=== PATIENT | female | born 1965 | race Two or more races ===

== ENCOUNTER 2016-10-08 16:08 | Inpatient (IN) | payer OTHER ==
[~2016-10-08] VITALS: Ht 149.9 cm; Wt 54.2 kg
[~2016-10-08 16:08] MED LIST: CIPROFLOXACIN500 M1 PO; METRONIDAZOLE500 MG PO; PERCOCET 5/31 TABLET PO
[2016-10-08 17:04] LABS: EOSINOPHIL (%) 0.4 % (0-5); HEMATOCRIT 37.8 % (36.0-46.0); IMMATURE GRANULOCYTE (%) 1.3 % (0.0-0.7); IMMATURE GRANULOCYTE COUNT 0.1 K/uL; MCH 28.7 PG (29.0-34.0); MCHC 32.5 G/DL (30.0-36.0); MCV 88.3 FL (83-99); MONOCYTE (%) 7.5 % (3-12); MONOCYTE COUNT 0.6 K/uL (0-0.8); NEUTROPHIL (%) 51.3 % (45-76); NRBC (%) 5.3 /100 WBC (0-0); PLATELET COUNT 75 K/uL (156-360); RBC DIS.WIDTH-CV 19.4 % (11.8-14.6); RBC DIS.WIDTH-SD 53.8 % (39-53); RED BLOOD COUNT 4.28 M/uL (3.80-5.20); WHITE BLOOD COUNT 7.7 K/uL (4.1-10.2)
[2016-10-08 17:07] LABS: CHLORIDE 106 mEq/L (99-109); POTASSIUM 4.4 mEq/L (3.7-5.4); SODIUM 141 mEq/L (136-147)
[2016-10-08] MEDS ORDERED: CAPECITABINE500 MG PO (17:08)
[2016-10-08 17:09] LABS: D-DIMER ELISA > 4.00 mg/L FEU (< 0.57); GLUCOSE 110 mg/dL (70-99)
[2016-10-08] MEDS ORDERED: TYKERB250 MG PO (17:09)
[2016-10-08 17:10] LABS: ANION GAP 16 MEQ/L (2-14)
[2016-10-08 17:12] LABS: GFR ESTIMATE (CALCULATED) > 59 mL/min/
[2016-10-08 17:13] LABS: UREA NITROGEN (BUN) 17 mg/dL (9-23)
[2016-10-08] MEDS ORDERED: ZOMETA 4 M4 MG/100 M IV (17:13)
[2016-10-08 17:20] LABS: TROP-I INTERPRETATION NEGATIVE; TROPONIN-I 0.16 ng/mL (0.0-0.30)
[2016-10-08] MEDS ORDERED: VITAMIN B-12250 MCG PO (20:39)
[2016-10-08] MEDS ORDERED: FLAX OIL1000 MG PO (20:40)
[2016-10-08] MEDS ORDERED: VITAMIN D2000 UNI1 PO (20:40)
[2016-10-08] MEDS ORDERED: VITAMIN C250 MG PO (20:40)
[2016-10-08] MEDS ORDERED: CALCIUM 500 MG1 EACH PO (20:41)
[2016-10-08 22:47] VITALS: BP 98/64
[2016-10-09 05:15] VITALS: BP 94/59
[2016-10-09 06:43] LABS: HEMATOCRIT 31.7 % (36.0-46.0); MCH 29.9 PG (29.0-34.0); MCHC 33.4 G/DL (30.0-36.0); MCV 89.3 FL (83-99); NRBC (%) 4.1 /100 WBC (0-0); RBC DIS.WIDTH-CV 19.3 % (11.8-14.6); RBC DIS.WIDTH-SD 54.9 % (39-53); RED BLOOD COUNT 3.55 M/uL (3.80-5.20); WHITE BLOOD COUNT 6.4 K/uL (4.1-10.2)
[2016-10-09 06:58] LABS: ANION GAP 13 MEQ/L (2-14); CHLORIDE 107 MEQ/L (99-109); GFR ESTIMATE (CALCULATED) > 59 mL/min/; GLUCOSE 94 mg/dL (70-99); POTASSIUM 4.1 MEQ/L (3.7-5.4); SAMPLE HEMOLYSIS CHECK 0; SAMPLE ICTERIC CHECK 0; SAMPLE LIPEMIA CHECK 0; SODIUM 140 MEQ/L (136-147); UREA NITROGEN (BUN) 18 mg/dL (9-23)
[2016-10-09 07:20] VITALS: BP 89/52
[2016-10-09 07:28] LABS: PLAT.SUFFICIENCY DECREASED; PLATELET CLUMPS PRESENT - PLATELET COUNTS APPEARS DECREASED
[2016-10-09 07:38] LABS: PLATELET COUNT UNABLE TO REPORT K/uL (156-360)
[2016-10-09 12:00] VITALS: BP 87/88
[2016-10-09 16:00] VITALS: BP 83/54
[2016-10-09 20:00] VITALS: BP 84/42
[2016-10-09 20:39] LABS: EOSINOPHIL (%) 0.5 % (0-5); HEMATOCRIT 29.4 % (36.0-46.0); IMMATURE GRANULOCYTE (%) 1.4 % (0.0-0.7); IMMATURE GRANULOCYTE COUNT 0.1 K/uL; INSTRUMENT ABS NEUTROPHIL CT 2.4 K/uL; LYMPHOCYTE COUNT 2.8 K/uL (1.0-2.8); MCH 29.2 PG (29.0-34.0); MCHC 32.3 G/DL (30.0-36.0); MCV 90.5 FL (83-99); MONOCYTE (%) 7.7 % (3-12); MONOCYTE COUNT 0.4 K/uL (0-0.8); NEUTROPHIL (%) 41.2 % (45-76); NEUTROPHIL COUNT 2.4 K/uL (1.8-6.4); NRBC (%) 3.3 /100 WBC (0-0); RBC DIS.WIDTH-CV 19.7 % (11.8-14.6); RBC DIS.WIDTH-SD 56.9 % (39-53); RED BLOOD COUNT 3.25 M/uL (3.80-5.20); WHITE BLOOD COUNT 5.7 K/uL (4.1-10.2)
[2016-10-09 20:40] LABS: PLATELET COUNT 84 K/uL (156-360)
[2016-10-09 23:07] VITALS: BP 97/65
[2016-10-10 04:00] VITALS: BP 84/50
[2016-10-10 06:28] LABS: EOSINOPHIL (%) 0.8 % (0-5); EOSINOPHIL COUNT 0.1 K/uL (0-0.3); HEMATOCRIT 28.5 % (36.0-46.0); IMMATURE GRANULOCYTE (%) 1.2 % (0.0-0.7); IMMATURE GRANULOCYTE COUNT 0.1 K/uL; INSTRUMENT ABS NEUTROPHIL CT 2.4 K/uL; MCH 28.8 PG (29.0-34.0); MCHC 31.9 G/DL (30.0-36.0); MCV 90.2 FL (83-99); MONOCYTE (%) 6.7 % (3-12); MONOCYTE COUNT 0.4 K/uL (0-0.8); NEUTROPHIL (%) 40.3 % (45-76); NEUTROPHIL COUNT 2.4 K/uL (1.8-6.4); NRBC (%) 2.7 /100 WBC (0-0); RBC DIS.WIDTH-CV 19.8 % (11.8-14.6); RED BLOOD COUNT 3.16 M/uL (3.80-5.20); WHITE BLOOD COUNT 5.9 K/uL (4.1-10.2)
[2016-10-10 06:42] LABS: ANION GAP 13 MEQ/L (2-14); CHLORIDE 110 MEQ/L (99-109); GFR ESTIMATE (CALCULATED) > 59 mL/min/; GLUCOSE 125 mg/dL (70-99); POTASSIUM 3.7 MEQ/L (3.7-5.4); SAMPLE HEMOLYSIS CHECK 0; SAMPLE ICTERIC CHECK 0; SAMPLE LIPEMIA CHECK 0; SODIUM 139 MEQ/L (136-147); UREA NITROGEN (BUN) 16 mg/dL (9-23)
[2016-10-10 07:36] VITALS: BP 98/61
[2016-10-10 07:44] LABS: PLAT.SUFFICIENCY DECREASED
[2016-10-10 07:52] LABS: PLATELET COUNT 57 K/uL (156-360)
[2016-10-10 11:38] VITALS: BP 97/60
[2016-10-10 15:17] VITALS: BP 91/55
[2016-10-10 19:50] VITALS: BP 106/70
[2016-10-11] VITALS (7 sets, daily range): BP systolic 95–134; BP diastolic 56–70
[2016-10-11 05:57] LABS: EOSINOPHIL (%) 1.1 % (0-5); EOSINOPHIL COUNT 0.1 K/uL (0-0.3); HEMATOCRIT 28.1 % (36.0-46.0); IMMATURE GRANULOCYTE (%) 1.1 % (0.0-0.7); IMMATURE GRANULOCYTE COUNT 0.1 K/uL; LYMPHOCYTE COUNT 3.9 K/uL (1.0-2.8); MCV 90.6 FL (83-99); MONOCYTE (%) 4.7 % (3-12); MONOCYTE COUNT 0.4 K/uL (0-0.8); NEUTROPHIL (%) 40.4 % (45-76); NRBC (%) 3.1 /100 WBC (0-0); RBC DIS.WIDTH-CV 20.5 % (11.8-14.6); RBC DIS.WIDTH-SD 60.9 % (39-53); WHITE BLOOD COUNT 7.5 K/uL (4.1-10.2)
[2016-10-11 06:26] LABS: ANION GAP 11 MEQ/L (2-14); CHLORIDE 115 MEQ/L (99-109); GFR ESTIMATE (CALCULATED) > 59 mL/min/; GLUCOSE 100 mg/dL (70-99); POTASSIUM 4.4 MEQ/L (3.7-5.4); SAMPLE HEMOLYSIS CHECK 0; SAMPLE ICTERIC CHECK 0; SAMPLE LIPEMIA CHECK 0; SODIUM 143 MEQ/L (136-147); UREA NITROGEN (BUN) 14 mg/dL (9-23)
[2016-10-11 06:58] LABS: HEMATOLOGY COMMENT 1 SMEAR COMPATIBLE; IMM.PLATELET FRACTION 9.7 (1-7); PLAT.SUFFICIENCY DECREASED; PLATELET COUNT 47 K/uL (156-360)
[2016-10-11] MEDS ORDERED: ASCORBIC ACID500 M3 PO (09:43)
[2016-10-11] MEDS ORDERED: VITAMIN D2000 UNI1 PO (09:44)
[2016-10-11 16:14] LABS: BASE EXCESS -8.3 mEq/L (-3 to +3); BICARBONATE 14.3 mEq/L (22-26); CARBOXY HGB 1.5 % (0-5); COMMENTS - BLOOD GASES A+C+; DEVICE HFNC; METHEMOGLOBIN 1.6 % (0-1.5); O2 FLOW 15 L/MIN; PCO2 21 mm Hg (35-45); PO2 48 mm Hg (80-100); SITE LRA; TOTAL RESP RATE 45 resp/min; pH 7.44 (7.35-7.45)
[2016-10-12 04:00] VITALS: BP 85/54
[2016-10-12 08:30] VITALS: BP 138/65
== END 2016-10-12 13:35 | DRG 180 ==
LOC: EME 16:08 → EDOF 21:23 → 5WEST 22:15 → 4EAST 10-11 17:49
PROVIDERS: Emergency Medicine; Hospitalist
DX: C78.02 Secondary malignant neoplasm of left lung (principal); C78.01 Secondary malignant neoplasm of right lung; J96.01 Acute respiratory failure with hypoxia; C50.912 Malignant neoplasm of unspecified site of left female breast; Z17.0 Estrogen receptor positive status [ER+]; C79.51 Secondary malignant neoplasm of bone; C79.2 Secondary malignant neoplasm of skin; Z51.5 Encounter for palliative care; Z66 Do not resuscitate; Z91.14 Patient's other noncompliance with medication regimen; Z91.19 Patient's noncompliance with other medical treatment and regimen; R00.0 Tachycardia, unspecified; R45.1 Restlessness and agitation; Z85.3 Personal history of malignant neoplasm of breast
CPT/HCPCS: 36600; 71010; 71020; 71275; 80048; 82803; 83880; 84484; 85025; 85027; 85379; 87040; 87070; 87075; 87077; 87147; 87186; 87205; 93005; 94010; 94640; 94760; 94799; 99202; 99281; 99284; G0378; J0456; J0696; J1200; J1650; J2060; J2270; J2405; J2930; J7030; J7050; J8521